=== PATIENT | female | born 2005 | race African-American/Black ===

== ENCOUNTER 2025-02-27 07:50 | Emergency (ER) | payer OTHER ==
[~2025-02-27] VITALS: Ht 165.1 cm; Wt 62.0 kg
[2025-02-27 07:52] VITALS: TEMP 37.1; O2SAT 98
[2025-02-27 08:12] LABS: BASOPHILS % 0.4 % (0.0-2.0); EOSINOPHILS % 0.7 % (0.0-5.0); HEMATOCRIT. 36.9 % (36.0-48.0); HEMOGLOBIN. 12.5 g/dL (12.0-16.0); LYMPHOCYTES % 38.0 % (20.0-50.0); MEAN PLATELET VOLUME 8.4 fl (7.4-10.4); MONOCYTES % 7.7 % (2.0-8.0); NEUTROPHILS % 53.2 % (40.0-76.0); PLATELET 275 x1000/uL (130-400); RED BLOOD CELL COUNT 4.08 mill/uL (4.2-5.4); RED CELL DISTRIBUTION WIDTH 12.2 % (11.6-14.6)
[2025-02-27 08:23] VITALS: BP 112/80; PULSE 95; RESP 16
[2025-02-27] MEDS: IBUPROFEN 600MG TABLET PO ONE (08:23)
[2025-02-27] MEDS: ONDANSETRON 4MG ODT PO ONE (08:23)
[2025-02-27 08:26] LABS: CREATININE 0.7 mg/dL (0.6-1.0); UREA NITROGEN BLOOD < 5 mg/dL (9-23)
[2025-02-27 08:37] LABS: CLARITY URINE CLOUDY (CLEAR); COLOR URINE YELLOW (YELLOW); GLUCOSE URINE NEGATIVE (NEGATIVE); KETONES URINE NEGATIVE (NEGATIVE); LEUKOCYTE ESTERASE URINE 3+ (NEGATIVE); NITRITE URINE NEGATIVE (NEGATIVE); OCCULT BLOOD URINE TRACE (NEGATIVE); PH URINE 6.0 (4.5-8.0); PROTEIN URINE 2+ (NEGATIVE); SPECIFIC GRAVITY URINE 1.021 (1.005-1.030); UROBILINOGEN URINE 1.0 E.U./dL (0.2-1.0)
[2025-02-27 08:42] LABS: TROPONIN I HIGH SENSITIVITY < 4 ng/L (3.0-34)
[2025-02-27 08:44] LABS: HCG SCREEN NEGATIVE
[2025-02-27 08:52] LABS: BACTERIA URINE 2+; SQUAMOUS EPITHELIAL CELL URINE 2+ /lpf (RARE/1+); WBC URINE 50-100 /hpf (0-2); YEAST URINE NONE SEEN
[2025-02-27] MEDS ORDERED: CEFP200T13 MT (09:36)
[2025-02-27 09:57] LABS: ASPARTATE AMINOTRANSFERASE 22 IU/L (<34); BILIRUBIN DIRECT 0.3 mg/dL (<=3.0); BILIRUBIN TOTAL 1.1 mg/dL (0.1-1.0); PROTEIN TOTAL 7.6 g/dL (6.0-8.3)
== END 2025-02-27 10:00 | disposition left against medical advice (07) ==
LOC: ER 07:50
DX: N39.0 Urinary tract infection, site not specified (principal)
CPT/HCPCS: 99285; 71045; 80076; 80048; 81003; 81025; 84703; 85025; 87086; 84484; 36415; 93005; Q0162